=== PATIENT | female | born 1995 | race Caucasian/White ===

== ENCOUNTER 2017-03-26 17:17 | Emergency (ER) | payer OTHER ==
[~2017-03-26] VITALS: Ht 170.2 cm; Wt 96.9 kg
[~2017-03-26 17:17] MED LIST: LEVO175T PO
[2017-03-26] MEDS ORDERED: ONDANSETRON INJ 2 MG/ML 2 ML VIAL IV STA (17:25)
[2017-03-26] MEDS ORDERED: MoRPHine SULFATE 4 MG/ML 1 ML CARP\\VIAL IV STA (17:25)
[2017-03-26] MEDS ORDERED: SODIUM CHLORIDE 0.9% 1000ML 1,000 ML IV STA (17:25)
[2017-03-26 17:31] VITALS: Ht 170.2 cm; Wt 96.9 kg
[2017-03-26 17:52] LABS: URINE APPEARANCE CLEAR (CLEAR); URINE BILIRUBIN NEG (NEG); URINE COLOR YELLOW; URINE NITRITE NEG (NEG); URINE PH 5.5 (4.5-7.5); URINE SPECIFIC GRAVITY 1.008 (1.000-1.030); UROBILINOGEN NEG (NEG)
[2017-03-26 17:57] LABS: MANUAL MICROSCOPIC REQUIRED? NO; REVIEW REQ? NO
[2017-03-26 18:19] LABS: BASO % 0.2 %; BASO ABS # 0.02 K/uL (0-0.2); COMPLETE YES; EOS % 1.1 %; HEMATOCRIT 39.5 % (37-47); IG% 0.4 %; LYMPH % 23.2 %; LYMPH ABS # 2.64 K/uL (1.2-3.4); MEAN CELL VOLUME 88.8 fL (80-100); MEAN CORPUSCULAR HEMOGLOBIN 30.6 pg (25-34); MEAN CORPUSCULAR HGB CONC 34.4 g/dl (32-36); MEAN PLATELET VOLUME 9.2 fL (7.4-10.4); MONO % 5.9 %; NEUT % 69.2 %; PLATELET COUNT 332 K/uL (130-400); RED BLOOD COUNT 4.45 M/uL (4.2-5.4); WHITE BLOOD COUNT 11.36 K/uL (4.8-10.8)
[2017-03-26 18:42] LABS: ALT/SGPT 46 U/L (12-78); BLOOD UREA NITROGEN 9 mg/dl (7-18); BUN/CREATININE RATIO 10.3 (10-20); CALCIUM 9.1 mg/dl (8.5-10.1); CARBON DIOXIDE 23 mmol/L (21-32); CHLORIDE 105 mmol/L (98-107); CREATININE 0.87 mg/dl (0.60-1.20); GLUCOSE 129 mg/dl (70-99); POTASSIUM 3.8 mmol/L (3.5-5.1); SODIUM 137 mmol/L (136-145)
[2017-03-26 18:45] LABS: ALKALINE PHOSPHATASE 55 U/L (45-117); AST/SGOT 22 U/L (15-37)
--- NOTE | 2017-03-26 20:15 | DIAGNOSTIC IMAGING REPORT ---
CT SCAN OF THE ABDOMEN AND PELVIS WITHOUT CONTRAST CLINICAL HISTORY: Right-sided pain COMPARISON STUDY: 04/06/2016 TECHNIQUE: CT scan of the abdomen and pelvis was performed from the lung bases to the proximal femurs. Images are reviewed in the axial, sagittal, and coronal planes. IV contrast was not administered for this examination. A dose lowering technique was utilized adhering to the principles of ALARA. CT DOSE: 1269.32 mGy.cm FINDINGS: Lower chest: There are mild bibasal atelectatic changes Liver: There is hepatic steatosis. No focal masses are visualized. Gallbladder: Unremarkable. Spleen: Normal in size and attenuation. Pancreas: Unremarkable. Adrenal glands: Unremarkable. Kidneys: No renal, ureteral, or bladder calculi are visualized. Bowel: There are no transition zones indicate bowel obstruction. There is no acute diverticulitis. The appendix is normal. Peritoneum: There is mild hyperdense free pelvic fluid, possibly hemorrhagic. No free intraperitoneal air is visualized. Vasculature: The abdominal aorta is normal in course and caliber. Adenopathy: Mildly prominent right ileocolic lymph nodes are likely reactive. Pelvic viscera: The adnexal structures are obscured due to the hyperdense free pelvic fluid Skeletal structures: No destructive osseous lesions are seen. IMPRESSION: 1. No renal, ureteral, or bladder calculi identified 2. No evidence of bowel obstruction. No evidence of free air 3. Normal appendix 4. Small amount of hyperdense free pelvic fluid, possibly hemorrhagic. In a patient of this age this could indicate a ruptured hemorrhagic ovarian cyst. Electronically signed by: Alec Salgado M.D. 03/26/2017 8:14 PM Dictated Date/Time: 03/26/2017 8:10 PM
[2017-03-26 21:11] VITALS: BP 116/78; PULSE 75; TEMP 37.3; O2SAT 100
--- NOTE | 2017-03-26 22:17 | EMERGENCY ROOM VISIT NOTE ---
History Report prepared by Srinivasan: Ortiz Lipscomb Under the Supervision of: Dr. Trey Roland M.D. First contact with patient: 17:20 Chief Complaint: ABDOMINAL PAIN Stated Complaint: AB PAIN History of Present Illness The patient is a 21 year old female who presents to the Emergency Room with complaints of constant right lower quadrant abdominal pain that started 45 minutes ago. She describes her pain as a sharp sensation. The patient states that she has also been experiencing nausea and vomiting. The patient admits to having similar symptoms in April when they did an ultrasound. She states that they found she has hepatomegaly, but reports she does not know why. The patient admits that she had blood work done in May and October. Initially her pain was attributed to her liver and she had abnormal liver tests. She reports that she also had blood work done over the summer, which was normal. The patient states that her last normal menstrual period was a month ago. She admits that her last sexual activity was a couple of months ago. The patient denies a possible , urinary symptoms, and fever. Source of History: patient Onset: 45 minutes [facility] Position: abdomen (RLQ) Quality: sharp Timing: constant Associated Symptoms: + nausea, + vomiting, No fevers, No urinary symptoms Review of Systems See HPI for pertinent positives & negatives. A total of 10 systems reviewed and were otherwise negative. Past Medical & Surgical Medical Problems: (1) Bulimia (2) Thyroid cancer Surgical Problems: (1) History of thyroidectomy Family History Cancer Diabetes mellitus Heart disease Hypertension Kidney disease Kidney stones Lung disease Social History Smoking Status: Never Smoker Alcohol Use: occasionally Drug Use: none Marital Status: single Housing Status: lives with family Occupation Status: employed Current/Historical Medications Scheduled Levothyroxine Sodium (Synthroid), 175 MCG PO DAILY Allergies Coded Allergies: No Known Allergies (Unverified , 03/26/17) Physical Exam Vital Signs Date Time Temp Pulse Resp B/P (MAP) Pulse Ox O2 Delivery O2 Flow Rate FiO2 03/26/17 21:11 37.3 75 18 116/78 100 03/26/17 19:09 6 18 121/84 100 03/26/17 18:40 69 117/74 99 Room Air 03/26/17 17:31 37.3 78 20 142/106 98 Room Air Physical Exam Constitutional: Vital signs reviewed. Eyes: Pupils are equal round reactive to light. Conjunctiva are noninjected. ENT: Pharynx is clear without erythema or exudate. Mucous membranes are moist. Neck supple without meningeal signs. Respiratory: Clear to auscultation bilaterally. Breath sounds are equal bilaterally. Cardiovascular: Regular rate and rhythm. No rubs or gallops. GI: Soft, nondistended. Diffuse abdominal tenderness worse in the right lower quadrant with voluntary guarding. Bowel sounds are present. Musculoskeletal: No peripheral edema. No lower extremity tenderness. Integumentary: No cyanosis. Neurological: The patient is awake and alert. No focal deficits. Psychiatric: Normal affect. Medical Decision & Procedures ER Provider Diagnostic Interpretation: CT results as stated below per my review and radiologist interpretation. CT SCAN OF THE ABDOMEN AND PELVIS WITHOUT CONTRAST CLINICAL HISTORY: Right-sided pain COMPARISON STUDY: 04/06/2016 TECHNIQUE: CT scan of the abdomen and pelvis was performed from the lung bases to the proximal femurs. Images are reviewed in the axial, sagittal, and coronal planes. IV contrast was not administered for this examination. A dose lowering technique was utilized adhering to the principles of ALARA. CT DOSE: 1269.32 mGy.cm FINDINGS: Lower chest: There are mild bibasal atelectatic changes Liver: There is hepatic steatosis. No focal masses are visualized. Gallbladder: Unremarkable. Spleen: Normal in size and attenuation. Pancreas: Unremarkable. Adrenal glands: Unremarkable. Kidneys: No renal, ureteral, or bladder calculi are visualized. Bowel: There are no transition zones indicate bowel obstruction. There is no acute diverticulitis. The appendix is normal. Peritoneum: There is mild hyperdense free pelvic fluid, possibly hemorrhagic. No free intraperitoneal air is visualized. Vasculature: The abdominal aorta is normal in course and caliber. Adenopathy: Mildly prominent right ileocolic lymph nodes are likely reactive. Pelvic viscera: The adnexal structures are obscured due to the hyperdense free pelvic fluid Skeletal structures: No destructive osseous lesions are seen. IMPRESSION: 1. No renal, ureteral, or bladder calculi identified 2. No evidence of bowel obstruction. No evidence of free air 3. Normal appendix 4. Small amount of hyperdense free pelvic fluid, possibly hemorrhagic. In a patient of this age this could indicate a ruptured hemorrhagic ovarian cyst. Electronically signed by: Alec Salgado M.D. 03/26/2017 8:14 PM Dictated Date/Time: 03/26/2017 8:10 PM Laboratory Results 9/25/17 17:55 Red Blood Count 4.45, Mean Corpuscular Volume 88.8, Mean Corpuscular Hemoglobin 30.6, Mean Corpuscular Hemoglobin Concent 34.4, Mean Platelet Volume 9.2, Neutrophils (%) (Auto) 69.2, Lymphocytes (%) (Auto) 23.2, Monocytes (%) (Auto) 5.9, Eosinophils (%) (Auto) 1.1, Basophils (%) (Auto) 0.2, Neutrophils # (Auto) 7.85, Lymphocytes # (Auto) 2.64, Monocytes # (Auto) 0.67, Eosinophils # (Auto) 0.13, Basophils # (Auto) 0.02 03/26/17 17:55 Test 03/26/17 17:40 03/26/17 17:55 Urine Color YELLOW Urine Appearance CLEAR (CLEAR) Urine pH 5.5 (4.5-7.5) Urine Specific [place] 1.008 (1.000-1.030) Urine Protein NEG (NEG) Urine Glucose (UA) NEG (NEG) Urine Ketones NEG (NEG) Urine Occult Blood NEG (NEG) Urine Nitrite NEG (NEG) Urine Bilirubin NEG (NEG) Urine Urobilinogen NEG (NEG) Urine Leukocyte Esterase NEG (NEG) Urine Test NEG (NEG) White Blood Count 11.36 K/uL (4.8-10.8) Red Blood Count 4.45 M/uL (4.2-5.4) Hemoglobin 13.6 g/dL (12.0-16.0) Hematocrit 39.5 % (37-47) Mean Corpuscular Volume 88.8 fL (80-100) Mean Corpuscular Hemoglobin 30.6 pg (25-34) Mean Corpuscular Hemoglobin Concent 34.4 g/dl (32-36) Platelet Count 332 K/uL (130-400) Mean Platelet Volume 9.2 fL (7.4-10.4) Neutrophils (%) (Auto) 69.2 % Lymphocytes (%) (Auto) 23.2 % Monocytes (%) (Auto) 5.9 % Eosinophils (%) (Auto) 1.1 % Basophils (%) (Auto) 0.2 % Neutrophils # (Auto) 7.85 K/uL (1.4-6.5) Lymphocytes # (Auto) 2.64 K/uL (1.2-3.4) Monocytes # (Auto) 0.67 K/uL (0.11-0.59) Eosinophils # (Auto) 0.13 K/uL (0-0.5) Basophils # (Auto) 0.02 K/uL (0-0.2) RDW Standard Deviation 40.2 fL (36.4-46.3) RDW Coefficient of Variation 12.5 % (11.5-14.5) Immature Granulocyte % (Auto) 0.4 % Immature Granulocyte # (Auto) 0.05 K/uL (0.00-0.02) Anion Gap 9.0 mmol/L (3-11) Est Creatinine Clear Calc Drug Dose 122.3 ml/min Estimated GFR () 110.4 Estimated GFR (Non- 95.2 BUN/Creatinine Ratio 10.3 (10-20) Calcium Level 9.1 mg/dl (8.5-10.1) Total Bilirubin 0.3 mg/dl (0.2-1) Direct Bilirubin < 0.1 mg/dl (0-0.2) Aspartate Amino Transf (AST/SGOT) 22 U/L (15-37) Alanine Aminotransferase (ALT/SGPT) 46 U/L (12-78) Alkaline Phosphatase 55 U/L (45-117) Total Protein 7.7 gm/dl (6.4-8.2) Albumin 4.0 gm/dl (3.4-5.0) Lipase 231 U/L (73-393) Laboratory results as reviewed by me. Medications Administered Medications (Trade) Dose Ordered Sig/Genet Route Start Time Stop Time Status Last Admin Dose Admin Morphine Sulfate (MoRPHine SULFATE INJ) 4 mg ONE STAT IV 03/26/17 17:25 03/26/17 17:27 DC 03/26/17 18:09 4 MG Ondansetron HCl (Zofran Inj) 4 mg NOW STAT IV 03/26/17 17:25 03/26/17 17:27 DC 03/26/17 18:09 4 MG Sodium Chloride 1,000 ml @ 999 mls/hr Q1H1M STAT IV 03/26/17 17:25 03/26/17 18:25 DC 03/26/17 18:09 999 MLS/HR ED Course 1724: The patient was evaluated in room B12B. A complete history and physical exam was performed. 1724: Ordered Sodium Chloride 1000 ml @ 999 mls/hr IV, Zofran Injection 4 mg IV , Morphine Sulfate 4 mg IV. 1900: I reevaluated the patient and she is feeling better. 2039: I reevaluated the patient and she has no significant pain or tenderness. I discussed her results and treatment plan. She agrees to the plan. The patient is ready for discharge. Medical Decision This is a 21-year-old female who presents with right-sided abdominal pain starting approximately 45 minutes prior to arrival. Differential diagnosis includes acute appendicitis, rupture, renal colic, ectopic , ovarian cyst. I did perform a limited focused review of portions of the patient's old chart on the electronic medical record. The patient has had no recent pertinent visits to this hospital.She did have a CT scan in 2015 which showed hepatomegaly but no acute process. I did evaluate the patient as noted above. The patient is presenting with sudden onset of right-sided abdominal pain. She is tender in the right lower quadrant but also has some diffuse tenderness. IV access was established. I did treat patient with IV morphine and Zofran. She is also given normal saline IV. Urine test was negative. I did order and personally review the patient's urinalysis as described above. I did order and review the patient's blood work as noted in the electronic medical record. Her white blood cell count is minimally elevated. I did order a CT of the abdomen and pelvis. I did review the images myself as well as the radiology report as described above. The patient has no acute intra-abdominal processes such as kidney stone or appendicitis. She does have fluid in the pelvis consistent with a possible ruptured hemorrhagic cyst. I did reassess patient. She has no tenderness on exam other than some very minimal suprapubic tenderness. I did discuss the test results with her. She declined pelvic examination. I did recommend she follow up with [facility]. She was given return instructions as outlined below. Medication Reconcilliation Current Medication List: was personally reviewed by me Blood Pressure Screening Patient's blood pressure: Elevated blood pressure Impression Primary Impression: Ruptured ovarian cyst Scribe Attestation The scribe's documentation has been prepared under my direct and personally reviewed by me in its entirety. I confirm that the note above accurately reflects all work, treatment, procedures, and medical decision making performed by me. Departure Information Dispostion Home / Self-Care Referrals [facility] (PCP) Forms HOME CARE DOCUMENTATION FORM, IMPORTANT VISIT INFORMATION Patient Instructions ED Abdominal Pain Unkn Cause, My [facility] Additional Instructions You have been examined and treated today on an emergency basis only. This is not a substitute for, or an effort to provide, complete comprehensive medical care. It is impossible to recognize and treat all injuries or illnesses in a single emergency department visit. It is therefore important that you follow up closely with [facility]. Call as soon as possible for an appointment. Return for worsening symptoms or if you develop fever, vaginal discharge or any other concerning symptoms.
== END 2017-03-26 21:12 | disposition home or self-care (01) ==
LOC: EDBD 17:17 → C.EDB 17:18
DX: N83.201 Unspecified ovarian cyst, right side (principal); E89.0 Postprocedural hypothyroidism; Z85.850 Personal history of malignant neoplasm of thyroid; Z83.3 Family history of diabetes mellitus; Z82.49 Family history of ischemic heart disease and other diseases of the circulatory system; Z84.1 Family history of disorders of kidney and ureter